=== PATIENT | male | born 1965 | race Two or more races ===

== ENCOUNTER 2017-05-01 06:17 | Inpatient (IN) | payer OTHER ==
[2017-04-26 13:15] LABS: MEAN CORPUSCULAR HEMOGLOBIN 38.6 PG (27.0-31.0); MEAN CORPUSCULAR HGB CONC 34.1 G/DL (32.0-36.0); MEAN CORPUSCULAR VOLUME 113 FL (80-99); MEAN PLATELET VOLUME 7.7 FL (6.5-10.1); PLATELET COUNT 280 K/UL (150-450); RED BLOOD COUNT 4.15 M/UL (4.70-6.10); RED CELL DISTRIBUTION WIDTH 11.3 % (11.6-14.8); WHITE BLOOD COUNT 5.3 K/UL (4.8-10.8)
[2017-04-26 13:29] LABS: APPEARANCE,URINE CLEAR; KETONES,URINE NEGATIVE (NEGATIVE); LEUKOCYTE ESTERASE ,URINE NEGATIVE (NEGATIVE); NITRITE,URINE NEGATIVE (NEGATIVE); PH,URINE 6.5 (4.5-8.0); PROTEIN,URINE NEGATIVE (NEGATIVE); UROBILINOGEN,URINE NORMAL MG/DL (0.0-1.0)
[2017-04-26 13:30] LABS: ALANINE AMINOTRANSFERASE 33 U/L (12-78); ALBUMIN/GLOBULIN RATIO 1.1 (1.0-2.7); ANION GAP 6 mmol/L (5-15); ASPARTATE AMINO TRANSFERASE 22 U/L (15-37); CALCIUM 9.5 MG/DL (8.5-10.1); CARBON DIOXIDE 28 MMOL/L (21-32); CHLORIDE 106 MMOL/L (98-107); GLOMERULAR FILTRATION RATE > 60 mL/min (>60); PHOSPHORUS 3.2 MG/DL (2.5-4.9); POTASSIUM 4.7 MMOL/L (3.5-5.1); SODIUM 140 MMOL/L (136-145)
[2017-04-26 13:31] LABS: BACTERIA,URINE OCCASIONAL /HPF; RBC,URINE 0 /HPF (0 - 0); SQUAMOUS EPITHELIAL CELL,UR OCCASIONAL /LPF (NONE/OCC); WBC,URINE 0-2 /HPF (0 - 0)
[2017-04-26 13:40] LABS: ANISOCYTOSIS 1+; BAND NEUTROPHILS % (MANUAL) 0 % (0-8); BASOPHILS % (MANUAL) 0 % (0-2); EOSINOPHILS % (MANUAL) 0 % (0-3); LYMPHOCYTES % (MANUAL) 36 % (20-45); MACROCYTES 2+; NEUTROPHILS % (MANUAL) 55 % (45-75); PLATELET ESTIMATE ADEQUATE; PLATELET MORPHOLOGY NORMAL; PROTHROMBIN TIME 10.6 SEC (9.30-11.50); TOTAL CELLS COUNTED 100
--- NOTE | 2017-04-26 14:12 | Diagnostic Imaging Report ---
Indication: Cough Technique: XRAY Chest 2v Comparison: None Findings: Heart size and mediastinal contours are within normal limits. There is no focal airspace consolidation, pleural effusion or pneumothorax. No acute osseous abnormality is identified. Cervical fixation hardware is noted. Impression: No radiographic evidence of acute cardiopulmonary disease.
[~2017-05-01] VITALS: Ht 167.6 cm; Wt 80.7 kg
[2017-05-01] VITALS (12 sets, daily range): BP systolic 97–111; BP diastolic 57–70
[2017-05-01] MEDS ORDERED: ceFAZolin sod 2 GM in D5W 55 ML IVPB ONE (07:00)
[2017-05-01] MEDS ORDERED: OMEPRAZOLE20 M2 ORAL (07:07)
[2017-05-01] MEDS ORDERED: GABAPENTIN300 MG ORAL (07:07)
[2017-05-01] MEDS ORDERED: NORCO 10-325 T1 EACH ORAL (07:07)
[2017-05-01] MEDS ORDERED: METFORMIN HCL500 M5 PO (07:07)
[2017-05-01] MEDS ORDERED: Thrombin 5000 units TOPIC ONE ×2 (07:18→10:38)
[2017-05-01] MEDS ORDERED: Thrombin 5000 units spray kit TOPIC ONE ×2 (07:19→10:39)
[2017-05-01] MEDS ORDERED: Bacitracin 50000 Units Vial ONE ×2 (07:19→12:42)
[2017-05-01] MEDS ORDERED: Gelfoam Absorbable 1gm powder pkt TOPIC ONE ×2 (07:19→10:39)
[2017-05-01] MEDS ORDERED: Lidocaine 1% 10mg/ml/Epi 0.005mg/ml 30ml vial INJ ONE (07:19)
[2017-05-01] MEDS ORDERED: NS Irrig 1000ml ONE (08:00)
[2017-05-01] MEDS ORDERED: Sterile Water Irrig 1000ml IRRIG ONE (08:00)
[2017-05-01] MEDS ORDERED: Zemuron 50mg/5ml Inj IV ONE (08:00)
[2017-05-01] MEDS ORDERED: LR 1000ml ONE (08:00)
[2017-05-01] MEDS ORDERED: fentaNYL 100 mcg/2 mL IV ONE (08:00)
[2017-05-01] MEDS ORDERED: Midazolam 2mg/2ml Inj ONE (08:00)
[2017-05-01] MEDS ORDERED: Propofol 1,000mg/ 100ml btl IV ONE (08:00)
[2017-05-01] MEDS ORDERED: LR 1000ml 1,000 ML IVLG SCH (08:29)
[2017-05-01] MEDS ORDERED: Meperidine 50mg/ml Inj(FOR RIGORS ONLY) IVP ONE (08:30)
[2017-05-01] MEDS ORDERED: LORazepam Inj 2mg/ml 1ml IV PRN (08:30)
[2017-05-01] MEDS ORDERED: DiphenhydrAMINE 50mg/ml Inj IVP PRN (08:30)
--- NOTE | 2017-05-01 08:31 | Pre-Procedure Note/Attestation ---
Pre-Procedure Note/Attestation Complete Prior to Procedure Procedure Narrative: HWR and Redo laminectomy L5S1 Indications for Procedure Pre-Operative Diagnosis: SP spinal fusion with persistent radiculopathy Attestation I attest that I discussed the nature of the procedure; its benefits; risks and complications; and alternatives (and the risks and benefits of such alternatives ), prior to the procedure, with the patient (or the patient's legal passenger representative). I attest that, if there was a reasonable possibility of needing a blood transfusion, the patient (or the patient's legal passenger representative) was given the [facility] standardized written summary, pursuant to the Andry Delaney Blood Safety Act ([place] Health and Safety Code # 1645, as amended). I attest that I re-evaluated the patient just prior to the surgery and that there has been no change in the patient's H&P, except as documented below: NEEMA HOPPER May 01, 2017 08:31
--- NOTE | 2017-05-01 08:35 | Anethesia Preoperative Eval ---
Anesthesia Pre-op PMH/ROS General Date of Evaluation: May 01, 2017 Time of Evaluation: 08:00 Anesthesiologist: Feroz ASA Score: ASA 3 Mallampati Score Class I : Soft palate, uvula, fauces, pillars visible Class II: Soft palate, uvula, fauces visible Class III: Soft palate, base of uvula visible Class IV: Only hard plate visible Mallampati Classification: Class II Surgeon: Toshia Diagnosis: S/P lumbar fusion Surgical Procedure: Removal of hardware, neurolysis Family History: no anesthesia problems Allergies: Coded Allergies: No Known Allergies (Unverified , 05/01/17) Past Medical History Cardiovascular: Denies: HTN, CAD, SD, valve dz, arrhythmia, other Pulmonary: Reports: asthma, Denies: COPD, TEE, other Gastrointestinal/Genitourinary: Reports: GERD, Denies: CRI, ESRD, other Neurologic/Psychiatric: Denies: dementia, CVA, depression/anxiety, TIA, other Endocrine: Reports: DM HEENT: Denies: cataract (L), cataract (R), glaucoma, [place] (L), [place] (R), other Hematology/Immune: Denies: anemia, DVT, bleeding disorder, other Musculoskeletal/Integumentary: Denies: OA, RA, DJD, DDD, edema, other PMH Narrative: DM, asthma, GERD PSxH Narrative: Lumbar fusion, cervical fusion, vasectomy Anesthesia Pre-op Phys. Exam Physician Exam Last Vital Signs Date Time Temp Pulse Resp B/P (MAP) Pulse Ox O2 Delivery O2 Flow Rate FiO2 05/01/17 06:53 97.9 56 17 109/65 99 Room Air Constitutional: NAD Neurologic: CN 2-12 intact Cardiovascular: RRR, no M/R/G Respiratory: CTA Gastrointestinal: S/NT/ND Airway Exam Mallampati Score: Class II MO: full ROM: full Teeth: intact Anesthesia Pre-op A/P Labs WNL Accucheck 99 Studies Pre-op Studies: EKG - SR, no acute changes, CXR - NAD Risk Assessment & Plan Assessment: ASA class 3 male here for removal of hardware and neurolysis lumbar spine Plan: GETA, SedLine monitory Status Change Before Surgery: No Pre-Antibiotics Drug: Ancef Given Within 1 Hr of Incision: Yes Time Given: 08:45 RAMYA EVANS M.D. May 01, 2017 08:35
--- NOTE | 2017-05-01 08:36 | Immediate Post-Op Evaluation ---
Immediate Post-Op Evalulation Immediate Post-Op Evalulation Procedure: Removal of hardware and neurolysis lumbar spine Date of Evaluation: May 01, 2017 Time of Evaluation: 12:00 IV Fluids: 2000 Estimated Blood Loss: 50 Urinary Output: 200 Blood Pressure Systolic: 97 Blood Pressure Diastolic: 57 Pulse Rate: 72 Respiratory Rate: 16 O2 Sat by Pulse Oximetry: 100 Temperature (Fahrenheit): 98.2 Pain Score (1-10): 2 Nausea: No Vomiting: No Complications No complication Patient Status: awake, patent, extubated, none Hydration Status: adequate Drug: Ancef Given Within 1 Hr of Incision: Yes Time Given: 08:45 RAMYA EVANS M.D. May 01, 2017 08:35
[2017-05-01] MEDS ORDERED: Albuterol 90mcg Inhaler 8gm INH ONE (08:49)
[2017-05-01] MEDS ORDERED: LR 1000ml 1,000 ML IV SCH (10:29)
--- NOTE | 2017-05-01 11:13 | Brief Operative Note ---
Immediate Post Operative Note Operative Note Pre-op Diagnosis: SP spinal fusion with persistent radiculopathy Procedure: HWR l5S1, redo laminectomy L5 Surgeon: [employer] Teacher: juvenal menard Anesthesiologist: elgin Anesthesia: general Specimen: yes - explant hardware Complications: none Condition: stable Fluids: 1500 Estimated Blood Loss: volume - 100 Drains: hemovac Implant(s) used?: No NEEMA HOPPER May 01, 2017 11:13
[2017-05-01] MEDS ORDERED: traMADol 50mg tab ORAL PRN (11:15)
[2017-05-01] MEDS ORDERED: Milk of Magnesia 30ml Ud ORAL PRN (11:15)
[2017-05-01] MEDS ORDERED: Norco 7.5mg/325mg tab ORAL PRN ×2 (11:15)
[2017-05-01] MEDS ORDERED: Norco 5mg/325mg tab ORAL PRN (11:15)
[2017-05-01] MEDS: Hydromorphone 0.5mg/0.5ml inj IVP PRN ×2 (12:16→12:44)
[2017-05-01] MEDS ORDERED: HYDROmorphone 1mg/ml Carpuject SUBQ PRN (14:00)
[2017-05-01] MEDS ORDERED: Norco 10mg/325mg tab ORAL PRN (14:00)
[2017-05-01] MEDS ORDERED: Metoclopramide 10mg/2ml Inj IVP PRN (14:00)
[2017-05-01] MEDS ORDERED: D5 1/2NS 1,000 ML IV SCH (14:00)
[2017-05-01] MEDS: Hydromorphone 0.5mg/0.5ml inj SUBQ PRN ×3 (14:29→20:45)
[2017-05-01] MEDS: ceFAZolin 2gm/50ml Premix 50 ML IV SCH (17:35)
[2017-05-01] MEDS ORDERED: Chloraseptic Spray 20mL Bottle ORAL PRN (18:30)
[2017-05-01] MEDS: Pericolace tab ORAL SCH (19:01)
[2017-05-01] MEDS: NovoLOG Insulin Flexpen SUBQ SCH (20:44)
[2017-05-01] MEDS: Cyclobenzaprine 10mg Tab ORAL SCH (21:00)
--- NOTE | 2017-05-01 21:17 | Operative Note - Dictated ---
DATE OF OPERATION: 05/01/2017 SURGEON: Ryan Pope M.D. LEGAL COLLECTOR: Joel Chung PA-C. ANESTHESIOLOGIST: Andry Redman M.D. ANESTHESIA TYPE: General endotracheal anesthesia. PREOPERATIVE DIAGNOSES: 1. Status post anterior posterior fusion at L5-S1, secondary to spondylolisthesis with persistent radiculopathy left greater than right lower extremities. 2. Probable painful hardware. POSTOPERATIVE DIAGNOSES: 1. Status post anterior posterior fusion at L5-S1, secondary to spondylolisthesis with persistent radiculopathy left greater than right lower extremities. 2. Probable painful hardware. OPERATION PERFORMED: 1. Removal of hardware, L5-S1. 2. Exploration of fusion. 3. Redo laminectomy at L5. 4. Resection of bilateral Beyer body L5. 5. Neurolysis. 6. Neurodiagnostic monitoring. 7. Use of operating microscope. 8. Fluoroscopic imaging for localization purposes. ESTIMATED BLOOD LOSS: 100 mL. FLUIDS: 1500 mL. COMPLICATIONS: None. FINDINGS: 1. Severe scar formation left side and the right side in the area of the pars interarticularis. 2. Persistent mobility of the lamina at L5. INDICATIONS: The patient is a very pleasant gentleman who previously underwent anterior posterior spinal fusion, L5-S1. Postoperatively, improvement of back pain however persistent radiculopathic pain left greater than right, which progressively has become worse over time. Due to the persistent pars defects bilaterally as well as the likelihood of painful hardware as well as nerve root compression, surgical intervention was recommended. The patient elected to proceed. Intraoperative findings, initially a left-sided approach was first suggested due to the predominance of the patient's pain being down the left leg. However due to the fact that the lamina of L5 showed gross movement this likely represented effect on the area of the pars interarticularis/neural segments with the radicular pain down the left side greater than right side. Therefore, a complete laminectomy and Beyer resection was recommended. RISK NOTE: The patient was explained detailed risks and benefits of surgery to include, but not be limited to, those of bleeding, infection, damage to nerves, vessels, tendons, anesthetic risk, allergic reaction, aspiration, and possibly . The patient understood and wished to proceed. OPERATIVE PROCEDURE IN DETAIL: The patient was taken to the operative suite. After general endotracheal anesthesia was obtained, Mccoy catheter was placed. He was turned prone onto a radiolucent table. The back was prepped and draped in the usual sterile fashion. The prior incision was infiltrated with lidocaine and Marcaine with epinephrine. The incision was sharply carried down through the subcutaneous and subperiosteal dissection was carried out. Extensive scar tissue was encountered. The hardware at L5-S1 was identified bilaterally and this was removed using standard technique. At this point, please note that stress testing of the screws was performed prior to hardware removal and no evidence of pseudoarthrosis was encountered and the inspection of the fusion was confirmed. At this point, once the hardware was removed using standard technique, operating microscope was brought in place. The extensive scarring was encountered at L5. L5 lamina was removed in a piecemeal fashion centrally and subsequently bilaterally. The facet joints were resected bilaterally and the pars interarticularis/Beyer body was removed using meticulous microtechnique under microscopic visualization by mobilizing the nerve roots and freeing up the scar tissue from the L5 exiting nerve roots. Once satisfied with the laminectomy redo as well as the Beyer resection exploration of the nerve root was identified. An extensive scarring left-sided L5 and S1 nerve roots was encountered due to the chronic mobility along the pars. Once satisfied, copious irrigation was performed. Meticulous hemostasis was achieved. The fascia was repaired using #1 Vicryl. Subcutaneous closure using 2-0 Vicryl. Medium-sized Hemovac drain was placed deep to the fascia and mostly a sterile dressing was applied. The patient was turned onto his back and awaiting extubation at the time of this dictation. Sponge and needle counts were correct. Neurodiagnostic monitoring remained unchanged with a diminution of the left side compared to the right side. Ryan Clemente Pope DR: MEKHI JOB#: [id number] CC:
[2017-05-02] MEDS: ceFAZolin 2gm/50ml Premix 50 ML IV SCH ×2 (00:07→08:25)
[2017-05-02] MEDS: Hydromorphone 0.5mg/0.5ml inj SUBQ PRN ×5 (00:08→16:39)
[2017-05-02 00:19] VITALS: BP 85/55
[2017-05-02 04:45] VITALS: BP 98/55
--- NOTE | 2017-05-02 06:00 | Consultation ---
DATE OF CONSULTATION: 05/01/2017 CONSULTING PHYSICIAN: Nicholas Tavares M.D. ATTENDING/REFERRING PHYSICIAN: Ryan Pope M.D. REASON FOR CONSULTATION: Acute pain consult. HISTORY OF PRESENT ILLNESS: Dear Dr. Ryan Pope: Thank you kindly for consulting me to evaluate and render an opinion as to how to proceed in the management of the patient's acute postoperative lumbar spine pain after revision of lumbar spine surgery with instrumentation today. The patient is a 51-year-old gentleman, who injured his lumbar spine in a work-related injury. Two years ago, he underwent lumbar spine instrumentation surgery at [facility]. Since that time, he has been following with outpatient pain management doctors in the [facility]. He sees his pain management doctors on a monthly basis and has been on gabapentin and Brightwood chronically. After today's revision surgery with instrumentation, the patient complained of severe pain. He was trialed on multiple bolus doses of pain medications including Dilaudid, but still stated that his pain control was inadequate. At this time, he consulted me for acute pain management consultation. I saw the patient at the bedside. I performed detailed history and physical examination. I discussed the case with yourself, Dr. Pope, along with the charge nurse, RNJazmine. I saw the patient at bedside with his girlfriend and the floor nurse, Julita BEE. I spent over 75 minutes in consultation with an additional 30 minutes in medical record review. A comprehensive review of the medical record was performed. Records reviewed include utilization review and surgical authorization by the insurance carrier, [employer], on 04/20/2017, authorizing revision lumbar spine surgery with instrumentation by Dr. Ryan Pope. Preoperative history and physical by outpatient doctor, Dr. Olguin, on 04/26/2017, along with diagnostic testing, a 12-lead EKG, chest x-ray, and laboratory studies. Further record review included multiple reports from today's date of surgery at [facility], 05/01/2017, including records from the nursing and pharmacy departments and also multiple records were reviewed from today's surgery including records from the recovery room and records from the intraoperative anesthesiologist, Dr. Redman. Postoperative spine surgical orders and postoperative surgery report by Dr. Pope, anesthesia record, and pre- and post-anesthesia evaluation by Dr. Redman. PAST MEDICAL HISTORY: 1. Acute postoperative lumbar spine pain, status post revision lumbar spine surgery with instrumentation by Dr. Ryan Pope in 04/2017. 2. Work-related injury. 3. Chronic lumbar spine pain. 4. GERD. 5. Diabetes. 6. Asthma. PAST SURGICAL HISTORY: 1. Lumbar spine surgery at [facility] in 11/2014. 2. Cervical spine surgery in 11/2010. 3. Vasectomy. MEDICATIONS: Neurontin 300 mg four times a day, Brightwood 10/325 mg four times a day, metformin, omeprazole, and albuterol inhalers. ALLERGIES: No known drug allergies. SOCIAL HISTORY: The patient is accompanied at the bedside by his girlfriend. He denies tobacco, alcohol, or illicit drug use including marijuana. FAMILY HISTORY: Coronary artery disease. REVIEW OF SYSTEMS: Per Dr. Olguin. PHYSICAL EXAMINATION: VITAL SIGNS: Age 51. Height 5 feet 6 inches, weight 80 kg, and body-mass index 29. Vital signs show pain level 8/10 on the visual analog pain scale, afebrile, pulse 66, respirations 20, blood pressure 111/64, and oxygen saturation 100% on supplemental oxygen. HEENT: Normocephalic, atraumatic. No Egan palsy. No Kody syndrome. No nuchal rigidity. NEUROLOGIC: Detailed neurologic exam of the cervical and lumbar spine deferred to Dr. Pope. Lumbar spine, Hemovac drain in place and holding suction. Dressing appears clean and dry. Significant pain with log-rolling. Straight leg raising deferred. GENITOURINARY: Deferred. MUSCULOSKELETAL: A 5/5 dorsiflexion, 5/5 plantar flexion of bilateral lower extremity. CHEST: No wheezing appreciated. HEART: Regular rate and rhythm. LABORATORY AND DIAGNOSTIC DATA: Diagnostic testing shows 12-lead EKG which shows heart rate of 78, normal sinus rhythm, no evidence for acute cardiac ischemia on 04/27/2017. Preoperative chest x-ray shows no acute cardiopulmonary disease on 04/26/2017. Laboratory studies on 04/26/2017 show INR 1.0 and PTT 27. Urinalysis negative. Sodium 140, potassium 4.7, chloride 106, bicarbonate 28, BUN 13, creatinine 1.0, glucose 111, calcium 9.5. Phosphorus 3.2. Magnesium 2.0. Total bilirubin 0.5, AST 22, ALT 33, total protein 8.0, albumin 4.1, alkaline phosphatase . White count 5, hematocrit 47, and platelets 280,000. IMPRESSION: 1. Acute postoperative lumbar spine pain, status post revision lumbar spine surgery with instrumentation by Dr. Ryan Pope in 04/2017. 2. Work-related injury. 3. Chronic lumbar spine pain. 4. Gastroesophageal reflux disease. 5. Diabetes. 6. Asthma. TREATMENT RECOMMENDATIONS: I have devised the following analgesic plan to help with this patient's pain control. The patient states that he has trialed Flexeril in the past with good effect for his spasm, however, he is unable to obtain authorization for outpatient refill on this medication. Here in the hospital, I will use Flexeril nightly to help reduce his opioid requirement. The patient is somewhat opioid dependent, however, he will use his Brightwood 10/325 tablets, four tablets on a daily basis and on a regular basis. The patient denies using Imodium one tablet at this time, so I will try to hold off on using double dose of the tablets at this time, however, consideration may be needed in order to help wean him off of the parenteral narcotics, to use two tablets of Brightwood at a time. The patient does see his outpatient pain doctor, Sotero in [facility] nearly every month. The next appointment is scheduled in 10 days for now on 05/11/2017. The patient does already have a small supply of hydrocodone at home. I have also given prescriptions for #25 tablets of Brightwood and for #25 tablets of Flexeril to help bridge the patient with his home supply until he can follow up with his outpatient pain doctor for further narcotic adjustments and refills. The patient was trialed on opioid, Dilaudid parenterally. This has been well tolerated and I have increased the dose to 1 mg subcutaneously every three hours p.r.n. for severe pain episodes. The patient does not appear to be anxious. I would hold off on benzodiazepine at this time, as the patient does not drink alcohol regularly in order to avoid the potentiation of respiratory depression, which may develop. Currently, the patient does not have any asthma symptoms or wheezing. I will make available albuterol as a rescue nebulizer treatment for the respiratory therapy chain. I have restarted the patient's Neurontin for his baseline neuropathic pain. As the patient is diabetic, I will have Dr. Olguin adjust the exact medications. I feel Dr. Olguin can evaluate the patient, I have started the patient on low-dose sliding-scale insulin treatment regimen along with routine Accu-Cheks. I would hold off restarting his metformin until tomorrow morning when he is placed on an 1800-ADA calorie diet. The patient has tolerated liquids without any difficulties. If he has any itching symptoms, the patient will be ordered Benadryl mg q.6 h. In case of any nausea symptoms, Zofran is available as a rescue antiemetic. I will order incentive spirometer to encourage good pulmonary toilet. The patient does have sequential compression pneumatic devices for DVT prophylaxis. The patient does have chronic GERD symptoms for which he uses Protonix. This medication has been renewed. I will also make available a dose of Mylanta 30 mL q.6 h. in case of any GERD symptom exacerbation. Nicholas Tavares M.D. DR: MITZI JOB#: [id number] CC:
[2017-05-02] MEDS: NovoLOG Insulin Flexpen SUBQ SCH ×4 (06:23→21:00)
--- NOTE | 2017-05-02 08:02 | Orthopedic Spine Progress Note ---
Ortho Spine - Progress Note Subjective Symptoms: c/o post-op back pain, improved - as compared to pre-op Objective Vital Signs: Last 24 Hour Vital Signs Date Time Temp Pulse Resp B/P (MAP) Pulse Ox O2 Delivery O2 Flow Rate FiO2 05/02/17 04:45 98.9 72 18 98/55 99 05/02/17 00:19 98.5 76 18 85/55 98 Nasal Cannula 05/01/17 20:09 98.6 65 17 103/65 99 05/01/17 16:00 97.6 66 21 111/64 100 Room Air 05/01/17 13:25 98.3 65 15 109/61 100 Nasal Cannula 3.0 05/01/17 13:15 69 11 100/61 100 Nasal Cannula 3.0 05/01/17 13:00 70 14 106/70 100 Nasal Cannula 3.0 05/01/17 12:44 70 14 110/63 100 Simple Mask 6.0 05/01/17 12:36 73 14 103/61 100 Simple Mask 6.0 05/01/17 12:15 75 14 107/65 100 Simple Mask 6.0 05/01/17 12:00 60 15 101/60 100 Simple Mask 6.0 05/01/17 11:55 69 17 97/57 100 Simple Mask 6.0 05/01/17 11:52 72 16 100 05/01/17 11:50 98.3 69 17 97/57 100 Simple Mask 6.0 Wound: clean, intact Drains: hemovac Neuro Status: normal Assessment Procedure Performed: HWR l5S1, redo laminectomy L5 Plan Plan: PT, pain management, continue drain, discharge plan NEEMA HOPPER May 02, 2017 08:02
[2017-05-02 08:20] VITALS: BP 117/58
[2017-05-02] MEDS: metFORMIN 500mg tab ORAL SCH (08:25)
[2017-05-02] MEDS: Pericolace tab ORAL SCH ×2 (08:25→18:14)
[2017-05-02] MEDS: Norco 10mg/325mg tab ORAL PRN ×2 (08:26→13:14)
--- NOTE | 2017-05-02 08:35 | 48 Hour Post Anesthesia Eval ---
Post Anesthesia Evaluation Procedure: Removal of hardware and neurolysis lumbar spine Date of Evaluation: May 02, 2017 Time of Evaluation: 07:05 Blood Pressure Systolic: 98 0: 55 Pulse Rate: 72 Respiratory Rate: 18 Temperature (Fahrenheit): 98.9 O2 Sat by Pulse Oximetry: 99 Airway: patent Nausea: No Vomiting: No Pain Intensity: 2 Hydration Status: adequate Cardiopulmonary Status: at baseline Mental Status/LOC: patient returned to baseline Post-Anesthesia Complications: 0 Follow-up care needed: N/A - further care as per primary team DANTE RANGEL M.D. May 02, 2017 08:35
--- NOTE | 2017-05-02 11:10 | Diagnostic Imaging Report ---
Indication: Intraoperative, for hardware removal Technique: Intraoperative images Comparison: none Findings: Single AP view demonstrates an anterior fusion plate at L5-S1 and what is presumably a large laminectomy defect. No other hardware demonstrated Impression: Intraoperative imaging, as described
[2017-05-02 11:59] VITALS: BP 119/61
[2017-05-02] MEDS ORDERED: D5 1/2NS 1000ml IV ONE (15:07)
[2017-05-02 16:00] VITALS: BP 104/61
[2017-05-02] MEDS ORDERED: Norco 10mg/325mg tab ORAL ONE (17:30)
[2017-05-02] MEDS ORDERED: Hydromorphone 0.5mg/0.5ml inj SUBQ PRN (17:30)
[2017-05-02] MEDS ORDERED: Magnesium Citrate Liq Btl ORAL ONE (18:00)
[2017-05-02 20:00] VITALS: BP 104/61
[2017-05-02] MEDS: Cyclobenzaprine 10mg Tab ORAL SCH (21:44)
[2017-05-03] VITALS: BP 109/62
--- NOTE | 2017-05-03 00:45 | Progress Note ---
DATE: 05/02/2017 ACUTE PAIN MANAGEMENT PHYSICIAN PROGRESS NOTE MEDICATIONS: Medication administration record reviewed. Medications include Nona-Colace, Chloraseptic, Protonix, Glucophage, milk of magnesia, diabetic medications including sliding scale, Dilaudid, Buena, Neurontin, Benadryl, Flexeril, Catapres, Mylanta, Tylenol. LABORATORY STUDIES: No interval laboratory studies. OBJECTIVE: VITAL SIGNS: Afebrile, pulse 84, respirations 18, blood pressure 104/61, and oxygen saturation 99% on room air. I saw the patient at the bedside with his girlfriend. I discussed the case with the surgeon, Dr. Pope and the nurse, CRISTAL Cancino. The patient ambulated very well with physical therapy today. He continued to have an indwelling lumbar spine drain catheter in place. Dr. Pope evaluated the patient earlier this morning and decided to keep the drain in place again overnight since the drainage was significant. We will continue to follow the drain output. We have been alternating doses of breakthrough subcutaneous Dilaudid with oral Buena. The patient has stated the pain is controllable but he still has been requiring considerable doses of subcutaneous Dilaudid. In an effort to try to wean off the parenteral narcotics, I will double his Buena dosing to two tablets at a time every 4 hours p.r.n. for mild pain. I will begin to decrease the frequency of Dilaudid to q.4 hours p.r.n. I have left a prescription for both Flexeril and Buena for outpatient usage and the patient will follow up with his outpatient pain doctor for narcotic adjustments and refills. The patient has been compliant in using his incentive spirometer. The patient states that he feels quite constipated with his chronic opioid usage, I encouraged the patient to accept a bottle of magnesium citrate mL, which the nurse will deliver shortly to help with bowel regularity. Nicholas Tavares M.D. DR: Solange JOB#: [id number] CC:
[2017-05-03 04:00] VITALS: BP 97/62
[2017-05-03 06:00] VITALS: BP 95/52
[2017-05-03] MEDS: NovoLOG Insulin Flexpen SUBQ SCH ×2 (06:28→11:30)
[2017-05-03 08:00] VITALS: BP 102/61
[2017-05-03] MEDS: Pericolace tab ORAL SCH (08:46)
[2017-05-03] MEDS: metFORMIN 500mg tab ORAL SCH (08:46)
[2017-05-03] MEDS: Norco 10mg/325mg tab ORAL PRN ×2 (08:48→13:11)
[2017-05-03 12:00] VITALS: BP 103/67
[2017-05-03] MEDS ORDERED: 1/2 NS 1000ml IV ONE (14:59)
--- NOTE | 2017-05-03 16:30 | Progress Note ---
DATE: 05/03/2017 ACUTE PAIN MANAGEMENT PHYSICIAN PROGRESS NOTE MEDICATIONS: Medication administration record reviewed. Medications include Nona-Colace, Protonix, Flexeril at bedtime, Glucophage, sliding-scale insulin, and Neurontin. P.r.n. medications include Tylenol, milk of magnesia, Benadryl, Chloraseptic, Catapres, Zofran, Mylanta, [place], and Dilaudid. LABORATORY STUDIES: No interval laboratory studies. OBJECTIVE: VITAL SIGNS: Afebrile, pulse 70, respirations 18, blood pressure 99/52, and oxygen saturation on room air. I discussed the case with the surgeon, Dr. Pope. I discussed the case with the nurse RN Anthony. I saw the patient at the bedside with his . The patient has been compliant using his incentive spirometer. The patient is currently afebrile and denies any shortness of breath or chest pain. The patient has been ambulating about three times yesterday and I encouraged much more aggressive ambulation today. He has been tolerating advancing diet and has been passing flatus without any nausea symptoms. Output from the Hemovac drain was less than 20 mL over the 12-hour overnight houseperson. The patient has been using oral hydrocodone tablets with good efficacy using sparingly doses of the breakthrough Dilaudid. The patient will follow up with his outpatient pain doctor for narcotic adjustment. I did leave a prescription for Flexeril and [place] in small quantities in case the patient runs out of his home medications before he follows up with his outpatient pain management doctor. The patient is providing excellent social support and assistance with activities of daily living. The patient was turned to the right lateral decubitus position. Examination of the lumbar spine wound was performed after the lumbar spine dressing was removed. Incision line was clean and dry, with DuraBond sealant intact. The drain hole site was clean and dry. There is no evidence for erythema or exudate. With the Hemovac drain taken off of suction and at the end-expiration, I personally removed the indwelling lumbar spine drain catheter. The tip was intact. Alcohol swabbing was applied generously to the drain hole site. A sterile 2 x 2 gauze was placed over the drain hole site followed with a large 6 x 6 island bordered gauze dressing over the drain hole site and incision. There were no complications. Nicholas Tavares M.D. DR: MIGUEL ANGEL JOB#: [id number] CC:
--- NOTE | 2017-05-03 17:35 | Discharge Summary ---
Discharge Summary Hospital Course Date of Admission May 01, 2017 at 06:17 Date of Discharge May 03, 2017 at 15:00 Admitting Diagnosis HPI Sotero Montejo is a 51 year old male who was admitted on May 01, 2017 at 06:17 for S/P Lumbar Fusion L5-S1 Hospital Course [id number] Discharge Discharge Disposition Patient was discharged to Home (01) Discharge Diagnoses: Gloria Armstrong NP May 03, 2017 17:35
--- NOTE | 2017-05-04 02:30 | Discharge Summary 2 SIG ---
DATE OF ADMISSION: 05/01/2017 DATE OF DISCHARGE: 05/03/2017 IMAGING TECHNOLOGIST: Nicholas Tavares M.D. BRIEF HOSPITAL COURSE: The patient is a 51-year-old male, who previously underwent anterior posterior spinal fusion on L5-S1 postoperatively with improvement of back pain, however, had persistent radiculopathic pain on the left greater than right, which progressively has become worse over time due to persistent pars defect bilaterally as well as likelihood of painful hardware as well as nerve root compression. Surgical intervention was recommended. He was admitted on 05/01/2017 and underwent removal of hardware on L5-S1 with exploration of fusion, redo laminectomy at L5, and resection of bilateral Beyer body at L5. He tolerated procedure well and postoperatively, was seen by Dr. Tavares for pain management. He was given Flexeril and was given [place]. He is being followed up by painter interior finish at [facility]. He already has a supply of hydrocodone at home. He was given Dilaudid subcutaneously for p.r.n. severe pain. He had tolerated liquids without any difficulty and was placed on SCDs for DVT prophylaxis and Protonix for GERD prophylaxis. He has been compliant using his spirometer and has been tolerating physical therapy and occupational therapy. Lumbar spine drain catheter was removed. Hemovac was discontinued. The patient was eventually discharged home. FINAL DIAGNOSES: 1. Status post anterior posterior fusion at L4-L5, secondary to spondylolisthesis with persistent radiculopathy, left greater than right lower extremity and probable painful hardware. 2. Status post removal of hardware on L5-S1 with exploration of fusion and redo laminectomy at L5 with resection of bilateral Beyer body at L5 on 05/01/[address] Ryan Pope. DISPOSITION: The patient was discharged home. DISCHARGE MEDICATIONS: Continue with home medications. DISCHARGE INSTRUCTIONS: Follow up with surgery as an outpatient. Ryan Pope M.D. I have been assigned to dictate discharge summary on this account and I was not involved in the patient's management. Gloria Armstrong N.P. DR: Day JOB#: [id number] CC:
== END 2017-05-03 15:00 | disposition home or self-care (01) | DRG 517 ==
LOC: SDSOVERFLO 06:17 → 3E 13:45
PROC: 0QB00ZZ Excision of Lumbar Vertebra, Open Approach (ICD-10-PCS; principal; 2017-05-01 08:00)
PROC: 0SP304Z Removal of Internal Fixation Device from Lumbosacral Joint, Open Approach (ICD-10-PCS; principal; 2017-05-01 08:00)
DX: T84.84XA Pain due to internal orthopedic prosthetic devices, implants and grafts, initial encounter (principal); E11.9 Type 2 diabetes mellitus without complications; M54.17 Radiculopathy, lumbosacral region; Z98.1 Arthrodesis status; M43.17 Spondylolisthesis, lumbosacral region; K21.9 Gastro-esophageal reflux disease without esophagitis; Z79.84 Long term (current) use of oral hypoglycemic drugs; J45.909 Unspecified asthma, uncomplicated; G89.18 Other acute postprocedural pain
CPT/HCPCS: 36415; 71020; 72020; 76001; 80053; 81001; 82962; 83735; 84100; 85007; 85025; 85610; 85730; 86850; 86900; 86901; 87081; 94003; 94150; C9399; J1815; J2250; J2405